=== PATIENT | male | born 1955 | race Caucasian/White ===

== ENCOUNTER 2019-08-26 12:05 | Emergency (ER) | payer MEDICARE, SELFPAY ==
[2019-08-26 12:59] VITALS: BP 105/72; PULSE 106; RESP 20; TEMP 37.6; O2SAT 98
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
== END 2019-08-26 14:10 | disposition home or self-care (01) ==
PROVIDERS: Emergency Provider Emergency Medicine; PCP Internal Medicine
DX: J02.0 Streptococcal pharyngitis (principal); K05.00 Acute gingivitis, plaque induced
CPT/HCPCS: 87804; 87880; 99213; G0463

== ENCOUNTER 2022-02-13 14:45 | Emergency (ER) | payer MEDICARE, SELFPAY ==
--- NOTE | ~2022-02-13 | XR_ITS ---
EXAMINATION: XR chest 2V Exam Date/Time: 02/13/2022 14:56 CDT HISTORY: cough fever Comparison: 01/04/2019. RESULT: Lines, tubes, and devices: None. Lungs and pleura: Segmental/subsegmental posterior medial airspace opacity. Cardiomediastinal silhouette: Stable. Other: No acute osseous or upper abdominal finding. IMPRESSION: Left medial basal opacity may reflect atelectasis or consolidation of pneumonia, aspiration could als o be considered in the appropriate clinical context. Reviewed, dictated and finalized at location K. IMPRESSION: Left medial basal opacity may reflect atelectasis or consolidation of pneumonia , aspiration could also be considered in the appropriate clinical context.
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
[2022-02-13 15:07] VITALS: BP 108/82; PULSE 86; RESP 20; TEMP 37.3; O2SAT 97
== END 2022-02-13 15:30 | disposition home or self-care (01) ==
PROVIDERS: Emergency Provider Nurse Practitioner; PCP Internal Medicine
DX: J18.9 Pneumonia, unspecified organism (principal); Z20.822 Contact with and (suspected) exposure to COVID-19; E78.00 Pure hypercholesterolemia, unspecified; D75.839 Thrombocytosis, unspecified
CPT/HCPCS: 71046; 87426; 99213; C9803; G0463

== ENCOUNTER 2022-12-23 14:00 | Outpatient (CLI) | payer MEDICARE, SELFPAY ==
[2022-12-23 16:54] LABS: Basophils Absolute Auto 0.1 K/mm3 (0.0-0.1); Basophils Percent Auto 1.3 % (0.2-1.2); Eosinophils Absolute Auto 0.1 K/mm3 (0-0.3); Eosinophils Percent Auto 1.7 % (0-4.4); Hematocrit 44.3 % (42.0-52.0); Hemoglobin 14.5 g/dL (14.0-18.0); Immature Granulocyte Absolute 0.01 K/mm3 (0.00-0.031); Immature Granulocyte Percent A 0.1 % (0-0.5); Lymphocytes Absolute Auto 1.46 K/mm3 (0.9-3.2); Mean Corpuscular HGB Conc 32.7 g/dl (32-36); Mean Corpuscular Hemoglobin 30.9 pg (26-34); Mean Corpuscular Volume 94.3 fl (80-100); Mean Platelet Volume 9.7 fl (7.4-10.4); Monocytes Absolute Auto 0.6 K/mm3 (0.1-0.6); Monocytes Percent Auto 8.3 % (2.6-8.5); Neutrophils Absolute Auto 4.7 K/mm3 (1.3-6.7); Neutrophils Percent Auto 67.6 % (45.5-73.1); Platelet Count Result 313 k/mm3 (150-375); Red Cell Distribution Width 11.9 % (11.5-14.5)
[2022-12-23 18:40] LABS: Alanine Aminotransferase 28 U/L (6-50); Anion Gap 5 mmol/L (8-16); Aspartate Amino Transferase 57 U/L (17-59); Bilirubin,Total 0.8 mg/dL (0.2-1.3); Blood Urea Nitrogen 19 mg/dL (9-20); Calcium 8.9 mg/dL (8.4-10.2); Carbon Dioxide 32 mmol/L (22-30); Chloride 101 mmol/L (98-107); Estimated Glomerular Filt Rate > 60; Glucose 105 mg/dL (65-110); Potassium 4.1 mmol/L (3.4-5.0); Sodium 138 mmol/L (137-145)
[2022-12-23 18:41] LABS: Albumin Level 4.4 g/dL (3.5-5.1); Alkaline Phosphatase 66 U/L (38-126); Cholesterol 241 mg/dL (0-200); HDL Direct 51 mg/dL; Triglycerides 88 mg/dL (<150)
[2022-12-23 18:52] LABS: LDL Cholesterol Direct 153 mg/dL
[2022-12-23 19:11] LABS: Prostate Specific Antigen 0.9 ng/mL (< OR = 4.0)
== END 2022-12-23 14:01 | disposition home or self-care (01) ==
LOC: ANHGOSHLAB 14:01
PROVIDERS: PCP Internal Medicine; Visit Provider Nurse Practitioner
DX: E78.5 Hyperlipidemia, unspecified (principal); R53.83 Other fatigue; R20.0 Anesthesia of skin; Z12.5 Encounter for screening for malignant neoplasm of prostate; R52 Pain, unspecified
CPT/HCPCS: 36415; 80053; 80061; 82607; 84153; 84443; 85025; G0103

== ENCOUNTER 2023-06-28 10:13 | Emergency (ER) | payer MEDICARE, SELFPAY ==
[2023-06-28 10:30] VITALS: BP 109/78; PULSE 72; RESP 16; TEMP 36.5; O2SAT 99
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
== END 2023-06-28 11:30 | disposition home or self-care (01) ==
PROVIDERS: Emergency Provider Nurse Practitioner Family; PCP Internal Medicine
DX: J06.9 Acute upper respiratory infection, unspecified (principal); Z20.822 Contact with and (suspected) exposure to COVID-19; E78.00 Pure hypercholesterolemia, unspecified; D75.839 Thrombocytosis, unspecified
CPT/HCPCS: 87081; 87426; 87880; 99213; C9803; G0463

== ENCOUNTER 2023-07-29 12:42 | Outpatient (CLI) | payer MEDICARE, SELFPAY ==
[2023-07-29 19:42] LABS: Alanine Aminotransferase 26 U/L (6-50); Albumin Level 4.1 g/dL (3.5-5.1); Alkaline Phosphatase 77 U/L (38-126); Anion Gap 7 mmol/L (8-16); Aspartate Amino Transferase 59 U/L (17-59); Bilirubin,Total 0.5 mg/dL (0.2-1.3); Blood Urea Nitrogen 20 mg/dL (9-20); Carbon Dioxide 30 mmol/L (22-30); Chloride 103 mmol/L (98-107); Cholesterol 229 mg/dL (0-200); Estimated Glomerular Filt Rate > 60; Glucose 97 mg/dL (65-110); HDL Direct 52 mg/dL; Sodium 140 mmol/L (137-145); Triglycerides 76 mg/dL (<150)
[2023-07-29 19:47] LABS: Basophils Absolute Auto 0.1 K/mm3 (0.0-0.1); Basophils Percent Auto 1.7 % (0.2-1.2); Eosinophils Absolute Auto 0.1 K/mm3 (0-0.3); Eosinophils Percent Auto 1.9 % (0-4.4); Hematocrit 45.1 % (42.0-52.0); Hemoglobin 14.4 g/dL (14.0-18.0); Immature Granulocyte Absolute 0.01 K/mm3 (0.00-0.031); Immature Granulocyte Percent A 0.1 % (0-0.5); Lymphocytes Absolute Auto 1.32 K/mm3 (0.9-3.2); Lymphocytes Percent Auto 18.4 % (18.3-44.2); Mean Corpuscular HGB Conc 31.9 g/dl (32-36); Mean Corpuscular Hemoglobin 30.6 pg (26-34); Mean Platelet Volume 9.9 fl (7.4-10.4); Monocytes Absolute Auto 0.6 K/mm3 (0.1-0.6); Monocytes Percent Auto 8.1 % (2.6-8.5); Neutrophils Percent Auto 69.8 % (45.5-73.1); Platelet Count Result 339 k/mm3 (150-375); Red Cell Distribution Width 12.1 % (11.5-14.5); White Blood Count 7.2 K/mm3 (4.5-10.0)
[2023-07-29 19:53] LABS: LDL Cholesterol Direct 133 mg/dL; Vitamin D 25 Hydroxy 39.8 ng/mL
[2023-07-29 19:53] LABS: Appearance Urine Clear (Clear); Bilirubin Urine Negative (Negative); Blood Urine Negative (Negative); Color Urine Yellow (Yellow); Glucose Urine UA Negative (Negative); Ketones Urine Negative (Negative); Leukocyte Esterase Ur Negative LEU/UL (Negative); Nitrate Urine Negative (Negative); Protein Urine Negative (Negative); pH Urine 8.5 (5.0-9.0)
[2023-07-29 19:56] LABS: Add Urine Microscopic? NO
[2023-07-29 20:11] LABS: Prostate Specific Antigen 0.9 ng/mL (< OR = 4.0)
[2023-08-02 06:27] LABS: Apolipoprotein B 111 mg/dL (<90)
== END 2023-07-29 12:43 | disposition home or self-care (01) ==
LOC: ANHGOSHLAB 12:44
PROVIDERS: PCP Internal Medicine; Visit Provider Nurse Practitioner
DX: R10.30 Lower abdominal pain, unspecified (principal); E55.9 Vitamin D deficiency, unspecified; E78.5 Hyperlipidemia, unspecified; F32.A Depression, unspecified; Z12.5 Encounter for screening for malignant neoplasm of prostate
CPT/HCPCS: 36415; 80053; 80061; 81003; 82172; 82306; 82607; 84153; 84443; 85025; G0103

== ENCOUNTER 2023-08-09 10:56 | Outpatient (CLI) | payer MEDICARE, SELFPAY ==
--- NOTE | ~2023-08-09 | US_ITS ---
EXAMINATION: US soft tissue groin LT DATE: 08/09/2023 11:22 INDICATION: Localized swelling, mass and lump, left inguinal region. TECHNIQUE: Multiple grayscale and Doppler ultrasound images of the left groin were obtained. COMPARISON: None FINDINGS: There is a small hernia in the left inguinal region. IMPRESSION: 1. Small hernia in the left inguinal region. Reviewed, dictated and finalized at location E. ERNAIL TECHNICIAN
== END 2023-08-09 10:57 ==
PROVIDERS: PCP Clinical Nurse Specialist; Visit Provider Clinical Nurse Specialist
DX: K40.90 Unilateral inguinal hernia, without obstruction or gangrene, not specified as recurrent (principal)
CPT/HCPCS: 76882

== ENCOUNTER 2023-09-30 12:32 | Outpatient (CLI) | payer MEDICARE, SELFPAY | END 2023-09-30 12:33 | disposition home or self-care (01) | LOC: ANHSURGERY 12:35 | PROVIDERS: PCP Clinical Nurse Specialist; Visit Provider Surgery | DX: K40.90 Unilateral inguinal hernia, without obstruction or gangrene, not specified as recurrent (principal); Z01.818 Encounter for other preprocedural examination | CPT/HCPCS: 36415; 86850; 86900; 86901 ==

== ENCOUNTER 2023-10-06 00:46 | Day surgery (SDC) | payer MEDICARE, SELFPAY ==
[2023-09-27 13:46] VITALS: BMI 21.2
--- NOTE | 2023-09-27 13:59 | PC.NURSE ---
PRE-OP INSTRUCTIONS, PLEASE READ CAREFULLY Report to the Outpatient Waiting Room, entrance under the green pavilion located off [facility], at time _1200_ on date _10/06/23_. Planned Procedure Time: _2 PM_. Time changes happen often and if your time is changed the preop area will call you the afternoon before. - You and your visitor will be asked to self-screen and do not enter if you have any COVID symptoms. - A mask is optional within the hospital at this time. Patients may have clear liquids (water, carbonated beverages, clear teas, apple juice) until 3 hours prior to surgery (1100 AM) with a maximum of 20 ounces. - No food from midnight until time of surgery Take the following medications with a SIP of water the morning of surgery: _TYLENOL IF NEEDED_ DO NOT STOP ANY OF YOUR OTHER PRESCRIPTION MEDICATIONS PRIOR TO SURGERY ?EXCEPT THE FOLLOWING Medications to discontinue - __IBUPROFEN PER DR. QUINN - CALL OFFICE FOR INSTRUCTIONS__ Medications to discontinue per ANESTHESIA - _SUPPLEMENTS 3 DAYS PRIOR TO SURGERY, Date to take last dose 10/02/23_ Please no make-up, nail estonian, hairspray, perfume, deodorant, or body powder the day of surgery. No jewelry (including any body piercings) or valuables the day of surgery, leave them at home. Please take a shower or bath the night before, or the morning of, surgery with an antibacterial soap. Wear comfortable, loose fitting clothing. - Jewelry must be removed prior to entering the operating room. Rings and piercings that are not removed may be cut off. - The hospital will not accept responsibility for valuables. - Please leave all valuables, including medications, at home the day of surgery. If you are going home after surgery, a licensed route driver salesperson must drive you home. - NO public transportation without another adult if you receive anesthesia. - We recommend that an adult stay with you for 24 hours following discharge. - We also recommend that you do not drive, make important decision, drink alcoholic beverages, or take any drugs that were not prescribed by your health care provider for at least 24 hours after your discharge time. Follow any additional instructions given to you from your surgeon. If you or anyone in your household have experienced Covid symptoms in the past week, please notify your surgeon or the nurse liaison at the phone number below for possible testing. Telephone instructions given to _PATIENT_and asked if any additional questions and then verbalized understanding. Patient advised to call surgeon office or pre surgery nurse liaison [phone] if any additional questions.
[2023-10-06] VITALS (8 sets, daily range): BP systolic 101–134; BP diastolic 61–78; PULSE 64–95; RESP 12–20; TEMP 36.3–36.6; O2SAT 98–100
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
--- NOTE | 2023-10-06 12:05 | WPDHPUPDATE1 ---
History and Physical Update Update Date/Time: 10/06/23 12:05 History and Physical has been reviewed, including an updated exam of the patient. There are NO changes in the patient's condition. Risks, benefits, and alternatives have been discussed and questions answered. Patient agrees to proceed with procedure.
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
[2023-10-06] MEDS: LACTATED RINGERS 1,000 ML 30 ML IV CONT ×2 (13:30→15:37)
[2023-10-06] MEDS: ACETAMINOPHEN 500 MG TABLET 1000 MG PO (13:30)
[2023-10-06] MEDS: KETOROLAC 15 MG/ML VIAL (*BKC) IV PUSH (13:30)
[2023-10-06] MEDS: ceFAZolin 2 GM/D5W 50 ML 2 GM/50 ML BAG IVPB (14:06)
[2023-10-06] MEDS: BUPIVACAINE/EPINEPHRINE 0.5% 30 ML VIAL INFILTRATE (14:54)
--- NOTE | 2023-10-06 15:14 | W.PM.PROC2 ---
Procedure Note - Detailed Date of Procedure 10/06/23 Pre-op Diagnosis left inguinal hernia Post-op Diagnosis Other ( incarcerated left inguinal hernia with sigmoid colon) Procedure Performed robotic assisted repair of incarcerated left inguinal hernia with mesh Surgeon Sandra Costa MD Anesthesia General Indications 68-year-old male presenting to the office complaining of left groin pain. Workup, including imaging, significant for left inguinal hernia. Findings Incarcerated left inguinal hernia with sigmoid colon Description of Procedure Patient was brought into the operating room and placed in the supine position. After adequate induction of general anesthesia, the patient was prepped and draped in normal sterile fashion. A time-out was then done to verify the patient's identity, as well as the procedure being performed. I began by making a 8 mm incision in the supraumbilical region, a Veress needle was then placed into the peritoneal cavity. CO2 gas was then insufflated and after adequate pneumoperitoneum was achieved, the Veress needle was removed. I then placed an 8 mm trocar through this incision. I then placed the endoscope through this trocar site and under direct visualization placed 2 further 8 mm ports in the right and left mid abdomen. The [employer] robot was then docked to the 3 trocar sites. I then scrubbed out and went to the robotic console. Upon examining the pelvis, it was noted that the patient had a moderate incarcerated left inguinal hernia. There was noted to be sigmoid colon incarcerated within the hernia. The right side was examined and no hernia defect was noted. Using gentle traction, I was able to reduce the sigmoid colon out of the hernia. I then began by making a preperitoneal flap approximately 6 cm superior to the defect. This flap was carried medially past the umbilical ligaments and laterally to the transversalis. It then began dissection of my medial compartment taking this down to the pubic tubercle. I then began the lateral dissection taking this down to the transversalis fascia. Once these compartments were achieved, I began dissection around the cord structures. A moderate sized indirect hernia was noted at this point. Using careful dissection, was able to reduce indirect hernia sac off the cord structures. Once this was adequately done, I went ahead and placed a large piece of 3D Max mesh into the abdominal cavity. The mesh was carefully positioned, centering the center of the mesh over the indirect defect. Once this was done, was very satisfied with our repair. Using 3-0 Vicryl sutures, I tacked the mesh medially to Dominik's ligament. Two lateral sutures were placed from the mesh to the transversalis fascia. I then closed the peritoneal flap with a running 2.0 V Lock suture. The abdomen was then desufflated, and all ports were removed. All incisions were then closed with the 4.0 monocryl suture. Dermabond was placed on each wound. The patient tolerated the procedure well, was extubated in the operating room postoperatively, and will now be transferred to the recovery room in stable condition. Implants large 3DMax mesh Estimated Blood Loss 10 Drains No Packing No Pathology None sent Complications No immediate complications Condition Stable Disposition PACU [facility] Billing Surgery - Charge Forward: Surgery Billing
== END 2023-10-06 17:10 | disposition home or self-care (01) ==
PROVIDERS: PCP Clinical Nurse Specialist; Visit Provider Surgery
PROC: 8E0Y4CZ Robotic Assisted Procedure of Lower Extremity, Percutaneous Endoscopic Approach (ICD-10-PCS; CPT 49650; principal; 2023-10-06 14:00)
DX: K40.30 Unilateral inguinal hernia, with obstruction, without gangrene, not specified as recurrent (principal); E78.00 Pure hypercholesterolemia, unspecified; Z79.1 Long term (current) use of non-steroidal anti-inflammatories (NSAID); Z98.890 Other specified postprocedural states; Z80.1 Family history of malignant neoplasm of trachea, bronchus and lung
CPT/HCPCS: 49507; S2900; A9270; C1781; J0690; J1100; J1170; J1596; J1885; J2371; J2704; J3010; J7120

== ENCOUNTER 2024-11-12 14:13 | Emergency (ER) | payer MEDICARE, SELFPAY ==
--- NOTE | ~2024-11-12 | XR_ITS ---
CHEST RADIOGRAPH, PA AND LATERAL CLINICAL HISTORY: cough and fever, non smoker . COMPARISON: 02/13/2022 TECHNIQUE: PA and lateral views of the chest. FINDINGS The cardiomediastinal silhouette is unremarkable. The lungs are clear. Incidental notation is made of pectus excavatum. IMPRESSION: No focal infiltrate or effusion. Reviewed, dictated and finalized at location A.
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
[2024-11-12 14:30] VITALS: BP 131/79; PULSE 122; RESP 16; TEMP 36.7; O2SAT 99
[2024-11-12 14:47] LABS: EDCOVIDSCREEN Negative (Negative)
[2024-11-12 14:49] LABS: EDINFLUASCREEN Negative (Negative); EDINFLUBSCREEN Negative (Negative)
== END 2024-11-12 14:58 | disposition home or self-care (01) ==
PROVIDERS: Emergency Provider Nurse Practitioner
DX: J20.9 Acute bronchitis, unspecified (principal); Z20.822 Contact with and (suspected) exposure to COVID-19; E78.00 Pure hypercholesterolemia, unspecified; D75.839 Thrombocytosis, unspecified
CPT/HCPCS: 71046; 87426; 87804; 99213; G0463

== ENCOUNTER 2024-12-21 10:36 | Outpatient (CLI) | payer MEDICARE, SELFPAY ==
--- OUTSIDE RECORDS SUMMARY | 2024-12-21 10:40 | XMS_ITS | Clinical Summary ---
Author Organization [facility] Address [address] [place] [address] Phone Care Team Providers Care Employment Supervisor Name Role Phone Chun Latham MD Primary Care Provider [phone] Allergies Active Allergy Reactions Criticality Noted Date Comments Penicillins Rash,Hives High 12/25/2007 Medications ibuprofen (MOTRIN) 200 mg tablet Take 400 mg by mouth every 6 hours as needed for Pain or Pain, Mild. 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/20/2014 Osteoarthritis of multiple joints 08/21/2013 Gastroesophageal reflux disease without esophagi tis 12/25/2007 Mixed hyperlipidemia 12/25/2007 Immunizations Immunization Administration Dates Next Due (ADACEL/BOOSTRIX)(10 YR UP) TDAP VACCINE, 0.5ML, IM 08/30/2014 (PNEUMOVAX 23)(50 YRS UP) PN EUMOCOCCAL POLYSACCHARIDE (PPV23) 0.5 ML, IM 08/10/2004 INFLUENZA VACCINE QUADRIVALE NT 3 YR UP PF IM 06/05/2015 Influenza Seasonal Unspecifi ed Formulation IM 06/01/2010,05/31/2007,05/25/2005 Influenza Vaccine Split 3+ Yrs IM 04/24/2013 Family History Medical History Relation Name Comments Heart Disease Father Kidney Disease Father dialysis Lung Cancer Father Heart Disease Mother Hypertension Mother Kidney Disease Mother dailysis Colon Cancer Neg Hx Relation Name Status Comments Father Mother Social History Tobacco Use Types Packs/Day Years Used Date Smoking Tobacco: Never Smokeless Tobacco: Never Alcohol Use Standard Drinks/Week Comments Yes 0 (1 standard drink = 0.6 oz pur e alcohol) Sex and Gender Information Value Date Recorded Sex Assigned at Not on file Legal Sex Male 3:33 PM RELIEF MAN Gender Identity Not on file Sexual Orientation Not on file Last Filed Vital Signs Vital Sign Reading Time Taken Comments Blood Pressure 120/76 10/13/2015 10:57 AM CDT Pulse 77 10/13/2015 10:57 AM CDT Temperature 36.9 C (98.5 F) 10/13/2015 10:57 AM CDT Respiratory Rate 16 02/28/2015 8:25 AM CDT Oxygen Saturation 100% 08/30/2014 6:45 PM RELIEF MAN Inhaled Oxygen Concentration - - Weight 79.4 kg (175 lb) 10/13/2015 10:57 AM CDT Height 188 cm (6' 2) 10/13/2015 10:57 AM CDT Body Mass Index 22.47 10/13/2015 10:57 AM CDT Plan of Treatment Health Maintenance Due Date Last Done Comments FIT-DNA Q 3 years 1998 FIT/FOBT Q 1 year 1998 Flex Sig/CT Colonography Q 5 years 1998 ZOSTER VACCINE (1 of 2) 09/23/2003 PNEUMOCOCCAL VACCINE 50+ YEA RS (2 of 2 - PCV) 08/10/2005 08/10/2004 INFLUENZA VACCINE (#1) 2024 5, 04/24/2013, 06/01/2010, Additional history exists COLORECTAL SCREENING 08/01/2024 08/01/2014, 08/01/19 15 Colorectal Cancer Screening 08/01/2024 DTAP/TDAP/TD VACCINES (2 - T d or Tdap) 08/30/2024 08/30/2014 RSV VACCINE (60+ or ) (1 - 1-dose 75+ series) 2028 Care Teams Employment Supervisor Relationship Specialty Start Date End Date Chun Latham MD [address] [address] [facility] - General 09/17/16
[2024-12-21 12:14] LABS: Basophils Absolute Auto 0.2 K/mm3 (0.0-0.1); Basophils Percent Auto 1.6 % (0.2-1.2); Eosinophils Absolute Auto 0.2 K/mm3 (0-0.3); Eosinophils Percent Auto 2.5 % (0-4.4); Hematocrit 45.3 % (42.0-52.0); Hemoglobin 14.4 g/dL (14.0-18.0); Immature Granulocyte Absolute 0.04 K/mm3 (0.00-0.031); Immature Granulocyte Percent A 0.4 % (0-0.5); Lymphocytes Absolute Auto 1.85 K/mm3 (0.9-3.2); Lymphocytes Percent Auto 19.6 % (18.3-44.2); Mean Corpuscular HGB Conc 31.8 g/dl (32-36); Mean Corpuscular Hemoglobin 30.6 pg (26-34); Mean Corpuscular Volume 96.2 fl (80-100); Mean Platelet Volume 10.2 fl (7.4-10.4); Monocytes Absolute Auto 0.7 K/mm3 (0.1-0.6); Monocytes Percent Auto 7.8 % (2.6-8.5); Neutrophils Absolute Auto 6.4 K/mm3 (1.3-6.7); Neutrophils Percent Auto 68.1 % (45.5-73.1); Platelet Count Result 343 k/mm3 (150-375); Red Blood Count 4.71 M/mm3 (4.6-6.20); Red Cell Distribution Width 12.5 % (11.5-14.5); White Blood Count 9.5 K/mm3 (4.5-10.0)
[2024-12-21 12:38] LABS: Alanine Aminotransferase 44 U/L (6-50); Albumin Level 4.6 g/dL (3.5-5.1); Alkaline Phosphatase 64 U/L (38-126); Anion Gap 8 mmol/L (4-12); Aspartate Amino Transferase 89 U/L (17-59); Bilirubin,Total 0.6 mg/dL (0.2-1.3); Blood Urea Nitrogen 21 mg/dL (9-20); Calcium 9.7 mg/dL (8.4-10.2); Carbon Dioxide 28 mmol/L (22-30); Chloride 103 mmol/L (98-107); Cholesterol 233 mg/dL (0-200); Estimated Glomerular Filt Rate > 60; Glucose 103 mg/dL (65-110); HDL Direct 72 mg/dL; Potassium 4.2 mmol/L (3.4-5.0); Sodium 139 mmol/L (137-145); Total Protein 7.4 g/dL (6.3-8.2); Triglycerides 92 mg/dL (<150)
[2024-12-21 12:48] LABS: Add Urine Microscopic? NO; Appearance Urine Clear (Clear); Bilirubin Urine Negative (Negative); Blood Urine Negative (Negative); Color Urine Yellow (Yellow); Glucose Urine UA Negative (Negative); Ketones Urine Negative (Negative); Leukocyte Esterase Ur Negative LEU/UL (Negative); Nitrate Urine Negative (Negative); Protein Urine Negative (Negative); Specific Grav Ur 1.005 (1.001-1.035); Urobilinogen Urine 0.2 mg/dL (<2.0); pH Urine 7.5 (5.0-9.0)
[2024-12-21 12:52] LABS: LDL Cholesterol Direct 111 mg/dL
[2024-12-21 13:00] LABS: Vitamin D 25 Hydroxy 26.6 ng/mL
[2024-12-21 13:10] LABS: Prostate Specific Antigen 1.2 ng/mL (< OR = 4.0)
[2024-12-21 13:16] LABS: HIV 1/2 Ab P24 Ag Result Negative (Negative)
[2024-12-21 13:23] LABS: Erythrocyte Sedimentation Rate 8 mm/hr (0-20)
[2024-12-21 13:30] LABS: Hepatitis C Virus Antibody Negative (Negative)
== END 2024-12-21 10:37 | disposition home or self-care (01) ==
LOC: ANHGOSHLAB 10:37
PROVIDERS: PCP Nurse Practitioner; Visit Provider Nurse Practitioner
DX: R63.4 Abnormal weight loss (principal); E55.9 Vitamin D deficiency, unspecified; R41.3 Other amnesia; R20.0 Anesthesia of skin; E78.5 Hyperlipidemia, unspecified; Z12.5 Encounter for screening for malignant neoplasm of prostate
CPT/HCPCS: 36415; 80053; 80061; 81003; 82306; 82607; 84153; 84443; 85025; 85652; 86703; 86803; G0103; G0432

== ENCOUNTER 2025-03-01 13:15 | Outpatient (RCR) | payer MEDICARE, SELFPAY ==
--- NOTE | 2025-01-04 17:03 | PTOPEVAL1 ---
Assessment and note entered by Jessenia Sands, PT Evaluation Information Assessment Status Evaluation Diagnosis low back pain unspecified ICD-10 Condition Codes (PT) Pain in low back M54.50,Abnormalities of gait and mobility R26.9,Weakness R53.1 Other ICD-10 Condition Codes ( scoliosis PT) Subjective Information History of arthritis in multiple areas, bad in wrists Usually is wore out and will sit in his chair in the evening and fall asleep. Babysits great grand baby who is 20-30 lbs, cleans houses one day a week, house work with a yard. Feels back pain most of the time with walking, lifting. sometimes is minor and sometimes is worse . Was seeing a chiropractor but wasn't getting relief. First noticed back pain a year ago after a fall. Has been trying to use a back brace lately. Reported Pain Level Pain Score 1: Self Report Assessment PT Clinical Summary Pt presents with complaints of back pain effecting his ability to perform high level activities and caring for his great granddaughter. Pt demonstrates what appears to be leg length discrepancy causing scoliotic curvature. He also demonstrates flexibility deficits in hips and LEs causing strain on low back, and weakness in the glutes causing lack of back support. Pt has been provided initial education and information for heel lift to assist in improved spinal alignment. Pt will benefit from physical therapy in order to address deficits, reduce pain, educate in appropriate body mechanics to prevent future issues, and meet patient goals. Plan of Care Interventions Electrical Stimulation,Gait Training,Hot Pack/Cold Pack,Manual Therapy,Neuro Re-education, Therapeutic Activities,Therapeutic Exercise,Self- Care/Home Management,Ultrasound,Other Other Interventions Taping, Bracing, TENS unit PT Services Indicated Yes Treatment Frequency and 1-2x weekly x 20 visits Duration These treatments will address the objective and functional deficits as defined above. The patient will be advanced safely and appropriately in order for the patient to progress towards his/her prior level of function. Additional exercises will be introduced and as well as a comprehensive home exercise program upon discharge, if needed, ?to ensure carryover of functional gains achieved in the clinic. This treatment plan has been reviewed and agreement upon by the patient.
--- NOTE | 2025-01-04 17:04 | OPREHPOC ---
Outpatient Therapy Plan of Care This is a Multidisciplinary Plan of Care that may contain components documented by all disciplines (PT, OT, and ST.) PT Problem 1 PT Problem #1 Knowledge Deficit PT Goal 1 Goal / Goal Update Pt will be independent in HEP Pt will verbalize understanding of diagnosis and prognosis Target Visit 10 PT Goal 1 Goal / Goal Update Pt will report lowest pain rating at 0/10 to show improvement in overall discomfort Target Visit 10 PT Goal 2 Goal / Goal Update Pt will report greatest pain level at 3/10 or less to improve ADLs and activities Target Visit 20 PT Problem 3 PT Problem #3 Impaired Flexibility PT Goal 1 Goal / Goal Update Pt will show hamstring flexibility from 90/90 of 60 degrees or more to decrease pull on lumbar spine Target Visit 10 PT Goal 2 Goal / Goal Update Pt will show quads flexibility of 120 cara to decrease pull on lumbar spine Target Visit 20 PT Problem 4 PT Problem #4 Impaired Strength PT Goal 1 Goal / Goal Update Pt will show strength of 4/5 or greater in cara hip abduction to improve lumbosacral stability Target Visit 10 PT Goal 2 Goal / Goal Update Pt will show strength of 4+/5 or greater in cara hip ext and abduction to improve lumbosacral stability Target Visit 20
--- NOTE | 2025-04-01 15:06 | PTOPDC ---
Assessment and note entered by Jessenia Sands, PT Evaluation Information Assessment Status Discharge - Pt Not Present Diagnosis low back pain unspecified ICD-10 Condition Codes (PT) Pain in low back M54.50,Abnormalities of gait and mobility R26.9,Weakness R53.1 Other ICD-10 Condition Codes ( scoliosis PT) Assessment PT Clinical Summary Pt attended four appts including evaluation over the course of nine weeks. It has been 30 days since he has been seen. Multiple attempts have been made to call patient and schedule follow up appointments without return calls. Pt was called and voice mail left that his plan of care is being closed due to nonattendance and he can return to therapy at any time with a new prescription. Plan of Care PT Services Indicated No
== END 2025-04-01 15:24 | disposition home or self-care (01) ==
LOC: ANHHIPT 13:15
PROVIDERS: PCP Nurse Practitioner; Visit Provider Nurse Practitioner
DX: M54.50 Low back pain, unspecified (principal)
CPT/HCPCS: 97014; 97110; 97162; 97530; G0283